=== PATIENT | female | born 1955 | race Two or more races ===

== ENCOUNTER 2022-10-04 18:48 | Emergency (ER) | payer OTHER ==
[~2022-10-04] VITALS: Ht 162.6 cm; Wt 70.0 kg
[2022-10-04] MEDS ORDERED: METHYLPREDNISOLONE SOD SUCC 125MG/2ML (ACT-O-VIAL) IV STA (19:29)
[2022-10-04] MEDS ORDERED: METHYLPREDNISOLONE SOD SUCC 125MG VIAL IV NR (19:45)
[2022-10-04] MEDS ORDERED: IPRATROPIUM/ALBUTEROL 0.5-3(2.5)MG/3ML NEB HHN ONE (19:45)
[2022-10-04 19:49] LABS: HEMATOCRIT. 41.9 % (36.0-48.0); MEAN CORPUSCULAR HEMOGLOBIN 29.8 pg (28.0-32.0); MEAN CORPUSCULAR HGB CONC 33.5 g/dL (31.0-37.0); MEAN CORPUSCULAR VOLUME 89.1 fL (81.0-99.0); MEAN PLATELET VOLUME 9.6 fl (7.4-10.4); PLATELET 292 x1000/uL (130-400); RED CELL DISTRIBUTION WIDTH 13.9 % (11.6-14.6); WHITE BLOOD COUNT 12.5 x1000/uL (4.5-11.0)
[2022-10-04 19:50] LABS: DIFFERENTIAL COMMENT 1
[2022-10-04 20:05] VITALS: PULSE 97; RESP 18; O2SAT 97
[2022-10-04 20:08] LABS: PLATELET ESTIMATE NORMAL
[2022-10-04 20:11] LABS: CHLORIDE 107 mEq/L (98-107); INDEX HEMOLYSI 4 (1-3); INDEX ICTERIC 1 (1-4); INDEX LIPEMIC 1 (1-3); SODIUM 136 mEq/L (136-145)
[2022-10-04 20:20] LABS: ALANINE AMINOTRANSFERASE 20 IU/L (13-61); ALBUMIN 3.8 g/dL (3.4-5.0); ASPARTATE AMINOTRANSFERASE 29 IU/L (15-37); BILIRUBIN TOTAL 0.6 mg/dL (0.1-1.0); CALCIUM 8.8 mg/dL (8.5-10.1); CARBON DIOXIDE 22 mEq/L (21-32); CREATININE 1.1 mg/dL (0.6-1.3); GLUCOSE 120 mg/dL (70-105); NT PRO B-TYPE NATRIURETIC PEP 293 pg/mL (5-125); PROTEIN TOTAL 8.1 g/dL (6.0-8.3); TROPONIN I HIGH SENSITIVITY 8 ng/L (<54); UREA NITROGEN BLOOD 18 mg/dL (7-21)
[2022-10-04 20:43] LABS: POTASSIUM 4.4 mEq/L (3.5-5.1)
[2022-10-04] MEDS ORDERED: ALBU6.7H3 INH (23:21)
[2022-10-04] MEDS ORDERED: AZIT250T12 MT (23:21)
[2022-10-04] MEDS ORDERED: P50 MT (23:21)
[2022-10-04] MEDS ORDERED: TOPUD MT (23:21)
[2022-10-05] MEDS ORDERED: IOHEXOL-350 100 ML BOTTLE ONE (00:45)
[2022-10-05 01:24] VITALS: TEMP 98.6
[2022-10-05 06:15] VITALS: BP 145/82; PULSE 65; RESP 20
== END 2022-10-05 06:43 | disposition home or self-care (01) ==
LOC: ER 18:48
DX: R05.9 Cough, unspecified (principal); R06.02 Shortness of breath; E11.9 Type 2 diabetes mellitus without complications; I10 Essential (primary) hypertension; Z20.822 Contact with and (suspected) exposure to COVID-19
CPT/HCPCS: 99285; 96374; 71275; 71045; 87426; 80053; 83880; 85025; 85379; 84484; 36415; 94640; 93005; J2930; C9803; Q9967